=== PATIENT | male | born 1940 | race Caucasian/White ===

== ENCOUNTER → 2017-05-30 | Outpatient (CLI) | payer MEDICARE ==
--- NOTE | 2017-05-30 13:12 | ECHRPT ---
Indication: Shortness of breath CONCLUSIONS The left ventricular systolic function is normal with an estimated ejection fraction in the range of 55-60%. Wall thickness is measured at the upper limits of normal. Normal left ventricular size. BP: / HR: 50 Rhythm: Other MEASUREMENTS (Male / Female) Normal Values Technical Quality:Good 2D ECHO LV Diastolic Diameter PLAX 4.9 cm 4.2 - 5.9 / 3.9 - 5.3 cm LV Systolic Diameter PLAX 3.7 cm IVS Diastolic Thickness 1.1 cm 0.6 - 1.0 / 0.6 - 0.9 cm LVPW Diastolic Thickness 1.1 cm 0.6 - 1.0 / 0.6 - 0.9 cm LV Relative Wall Thickness 0.4 RV Internal Dim ED PLAX 2.5 cm LVOT Diameter 2.3 cm M-MODE Aortic Root Diameter MM 2.7 cm LA Systolic Diameter MM 4.3 cm LA Ao Ratio MM 1.6 AV Cusp Separation MM 2.1 cm DOPPLER AV Peak Velocity 118.0 cm/s AV Peak Gradient 5.6 mmHg LVOT Peak Velocity 92.8 cm/s LVOT Peak Gradient 3.4 mmHg AV Area Cont Eq pk 3.3 cm Mitral E Point Velocity 56.3 cm/s Mitral A Point Velocity 73.5 cm/s Mitral E to A Ratio 0.8 LV E' Lateral Velocity 6.6 cm/s Mitral E to LV E' Lateral Ratio 8.5 TR Peak Velocity 259.0 cm/s TR Peak Gradient 26.8 mmHg PV Peak Velocity 145.0 cm/s PV Peak Gradient 8.4 mmHg FINDINGS LEFT VENTRICLE The left ventricular systolic function is normal with an estimated ejection fraction in the range of 55-60%. Wall thickness is measured at the upper limits of normal. Normal left ventricular size. There is mild tricuspid valve regurgitation. The estimated pulmonary arterial pressure is 37 mmHg. RIGHT VENTRICLE Normal right ventricular size and systolic function. LEFT ATRIUM The left atrial size is normal. RIGHT ATRIUM The right atrial size is normal. ATRIAL SEPTUM Normal atrial septal thickness without atrial level shunting by limited color doppler interrogation. AORTA The aortic root and proximal ascending aorta are normal in size on limited imaging. MITRAL VALVE Structurally normal mitral valve. No mitral valve stenosis or regurgitation. AORTIC VALVE Trileaflet aortic valve. No aortic valve stenosis or regurgitation. TRICUSPID VALVE There is mild tricuspid valve regurgitation. The estimated pulmonary arterial pressure is 37 mmHg. PULMONARY VALVE The pulmonary valve is not well visualized. VESSELS The inferior vena cava is normal in size. PERICARDIUM No pericardial effusion. Tian Mcfarland MD (Electronically Signed) Final Date:30 May 2017 13:11
--- NOTE | 2017-06-10 10:38 | RSPPFT ---
DATE OF PROCEDURE: 05/30/17 COMMENTS: VOLUMES DYNAMIC: FVC and FEV1 mildly reduced. STATIC: TLC, FRC and RV normal. FLOWS: FEV1% normal; FEF 25-75 mildly reduced. DIFFUSION: Low normal. FLOW VOLUME LOOP: Terminal airflow obstruction. IMPRESSION: Mild obstructive ventilatory defect with improvement post-bronchodilator. No significant hyperinflation. Airways resistance is significantly increased. Diffusion capacity is normal.
== END ==
LOC: HRSP 07:49
PROVIDERS: ATTEND Internal Medicine
DX: J44.9 Chronic obstructive pulmonary disease, unspecified (principal); R06.02 Shortness of breath
CPT/HCPCS: 93306; 94060; 94620; 94726; 94729; 95012